=== PATIENT | male | born 1960 | race Caucasian/White ===

== ENCOUNTER 2017-12-16 18:29 | Emergency (ER) | payer BC, OTHER ==
[~2017-12-16] VITALS: Ht 182.9 cm; Wt 93.0 kg
--- NOTE | 2017-12-16 18:46 | NUR ---
Dr Álvarez at the bedside for MSE.
--- NOTE | 2017-12-16 19:09 | NUR ---
RADIOLOGY AT BEDSIDE FOR XRAY.
--- NOTE | 2017-12-16 19:14 | NUR ---
Report given to Maricruz WILHELM, [employer].
[2017-12-16 19:15] LABS: BASOPHILS % (AUTO) 0.5 % (0.0-2.0); EOSINOPHILS # (AUTO) 0.1 K/uL (0.0-0.7); EOSINOPHILS % (AUTO) 1.5 % (0.0-7.0); HEMATOCRIT 45.6 % (36.7-47.1); LYMPHOCYTES # (AUTO) 1.4 K/uL (20.0-40.0); LYMPHOCYTES % (AUTO) 34.1 % (20.5-51.5); MEAN CORPUSCULAR HEMOGLOBIN 31.9 uug (23.8-33.4); MEAN CORPUSCULAR HGB CONC 35 g/dL (32.5-36.3); MEAN CORPUSCULAR VOLUME 91.1 fL (73.0-96.2); MONOCYTES # (AUTO) 0.7 K/uL (2.0-10.0); NEUTROPHILS % (AUTO) 47.9 % (38.5-71.5); PLATELET COUNT (AUTO) 162 K/uL (152-348); RED BLOOD CELL COUNT(AUTO) 5.01 MIL/uL (4.06-5.63); WHITE BLOOD COUNT (AUTO) 4.1 K/uL (3.6-10.2)
--- NOTE | 2017-12-16 19:16 | NUR ---
REPORT TAKEN FROM DAY SHIFT RN. ASSUMING PT CARE AT THIS TIME.
[2017-12-16 19:23] LABS: CREATININE 1.3 mg/dL (0.6-1.3); POTASSIUM 3.8 mmol/L (3.5-5.1)
[2017-12-16 19:35] LABS: BILIRUBIN,DIRECT 0.2 mg/dL (0.0-0.2); BILIRUBIN,TOTAL 0.7 mg/dL (0.2-1.0); TOTAL PROTEIN, SERUM 7.4 g/dL (6.4-8.2)
[2017-12-16 19:40] LABS: BAND % (MANUAL) 1 % (0-10); EOSINOPHILS % (MANUAL) 2 % (0-8); MONOCYTES % (MANUAL) 17 % (2-10)
[2017-12-16 19:41] LABS: LYMPHOCYTES % (MANUAL) 33 % (20-40); NEUTROPHILS % (MANUAL) 47 % (42-75)
--- NOTE | 2017-12-16 20:05 | NUR ---
US TECH AT PT BEDSIDE.
--- NOTE | 2017-12-16 20:18 | NUR ---
Patient discharged to home in stable conditon. Written and verbal after care instructions given. Patient verbalizes understanding of instructions. Pt ambulated from ER w/ steady gait. No acute distress noted. Denies pain, SOB, N/V. VSS.Pt took all personal belonings. Accompanied by significant other.
[2017-12-16 20:21] VITALS: BP 142/84
== END 2017-12-16 20:22 | disposition home or self-care (01) ==
LOC: ER 18:32
DX: I73.00 Raynaud's syndrome without gangrene (principal); I10 Essential (primary) hypertension
CPT/HCPCS: 36415; 70030-TC; 71045; 85025; 85651; 85730; 93005; A4663